=== PATIENT | female | born 2000 | race Two or more races ===

== ENCOUNTER 2024-05-05 14:22 | Emergency (ER) | payer OTHER ==
[~2024-05-05] VITALS: Ht 165.1 cm; Wt 53.5 kg
[2024-05-05] MEDS ORDERED: ORPHENADRINE CITRATE 30 MG/ML AMPUL IM STA (17:34)
[2024-05-05] MEDS ORDERED: KETOROLAC TROMETHAMINE 30 MG VIAL IM STA (17:34)
== END 2024-05-05 17:55 | disposition home or self-care (01) ==
LOC: ER 14:24
DX: M54.9 Dorsalgia, unspecified (principal)